=== PATIENT | female | born 1960 | race Caucasian/White ===

== ENCOUNTER → 2023-10-17 11:41 | Outpatient (REF) | payer BC, SELFPAY | LOC: WDC 11:41 | PROVIDERS: ATTENDING PHYSICIAN Obstetrics & Gynecology; FAMILY PHYSICIAN Internal Medicine | DX: Z12.31 Encounter for screening mammogram for malignant neoplasm of breast (principal) | CPT/HCPCS: 77063; 77067 ==

== ENCOUNTER → 2024-01-08 13:35 | Outpatient (REF) | payer BC, SELFPAY | LOC: HWRAD 13:35 | PROVIDERS: ATTENDING PHYSICIAN Nurse Practitioner Family; FAMILY PHYSICIAN Internal Medicine | DX: R93.89 Abnormal findings on diagnostic imaging of other specified body structures (principal); R06.09 Other forms of dyspnea | CPT/HCPCS: 71250 ==

== ENCOUNTER → 2024-04-08 12:45 | Outpatient (REF) | payer BC, SELFPAY | LOC: HWRAD 12:45 | PROVIDERS: ATTENDING PHYSICIAN Internal Medicine Critical Care Medicine; FAMILY PHYSICIAN Internal Medicine | DX: R91.1 Solitary pulmonary nodule (principal) | CPT/HCPCS: 71250 ==

== ENCOUNTER → 2024-07-22 16:13 | Outpatient (REF) | payer BC, SELFPAY | LOC: HWRCS 16:13 | PROVIDERS: ATTENDING PHYSICIAN Internal Medicine | DX: I48.91 Unspecified atrial fibrillation (principal) | CPT/HCPCS: 93306 ==

== ENCOUNTER 2024-07-28 11:19 | Day surgery (SDC) | payer BC, SELFPAY ==
[2024-07-28] VITALS (12 sets, daily range): BP systolic 83–107; BP diastolic 59–86; BMI 22.4
[2024-07-28 12:00] LABS: Hematocrit 45.7 % (37.0-47.0); Hemoglobin 15.6 g/dL (12.0-16.0); Mean Corp Hgb Conc. 34.1 g/dL (33.0-37.0); Mean Corpuscular Hgb 32.7 pg (27.0-31.0); Mean Corpuscular Volume 95.8 fL (81.0-99.0); Mean Platelet Volume 9.4 fL (7.4-10.4); Platelet Count 157 10^3/uL (130-400); Red Blood Cell Count 4.77 10^6/uL (4.20-5.40); Red Cell Dist. Width 12.4 % (11.5-14.5); White Blood Cell Count 5.5 10^3/uL (4.8-10.8)
[2024-07-28] MEDS: LOW STRENGTH ASPIRIN 81 MG PO (12:32)
[2024-07-28 12:43] LABS: ALT (SGPT) 46 U/L (0-35); AST (SGOT) 57 U/L (14-36); Albumin 4.8 g/dl (3.5-5.0); Alkaline Phosphatase 88 U/L (38-126); Blood Urea Nitrogen 18 mg/dl (7-17); Calcium 9.5 mg/dl (8.4-10.2); Carbon Dioxide 31 mmol/L (22-30); Chloride 106 mmol/L (98-107); Estimated Creatinine Clearance 53 ml/min; Glucose 104 mg/dl (70-99); Potassium 5.1 mmol/L (3.5-5.1); Sodium 143 mmol/L (135-145); Total Bilirubin 1.2 mg/dl (0.2-1.3); Total Protein 7.2 g/dl (6.3-8.2); eGFR 55.76
--- NOTE | 2024-07-28 18:20 | ITS.CL.CATH ---
E Commerce Specialist - Catheterization
Cardiac Catheterization
Procedure Report:
LEFT HEART CATHETERIZATION
Date of Procedure: July 28, 2024
Referring: Susan Rodrigez MD
PROCEDURES:
1. Left heart catheterization, coronary angiogram.
2. Moderate sedation.
INDICATION: New Afib with RVR, new cardiomyopathy
ACCESS: Right radial artery, 6Fr. sheath, under US guidance.
HEMODYNAMICS : (mmHg)
AO (s/d) : 75/57
LVEDP : 13
No significant gradient across the aortic valve to suggest aortic stenosis.
CORONARY FINDINGS
Dominance: Right
Left Main Trunk (LMT): Large caliber vessel that gives rise to the LAD and LCx branches that is free of angiographic disease.
Left Anterior Descending Artery (LAD): Large caliber vessel that gives off two major diagonal branches as it courses along the anterior inter-ventricular groove before reaching but not wrapping the apex. The distal LAD is diffusely diseased and a
small caliber vessel, cannot definitively rule out presence possibly of SCAD, though low suspicion given no angina or other symptoms.
Left Circumflex Artery (LCx): Large caliber vessel that gives off a large major obtuse marginal (OM) as it courses along the atrio-ventricular (AV) groove. The LCx has mild luminal irregularities.
Right Coronary Artery (RCA): Large caliber dominant vessel that gives rise to large posterior descending artery (RPDA) that reaches the apex and postero-lateral ventricular (RPLV) branches distally. The RCA has no obstructive disease.
SEDATION: 37 minutes of procedural sedation was utilized. IV Midazolam and IV Fentanyl were administered. An independent medical planner was present to assist with and help manage the patient's level of consciousness and physiologic status.
RADIATION SUMMARY: Fluoro Time (min): 1.5, Dose (mGy): 196.0, DAP (Gy.cm2) : 13.2
Closure Device: There were no immediate intra-procedural complications. The sheath was pulled in the malthouse laborer and a vascular-band applied to the right wrist for radial artery hemostasis using the patent hemostasis technique.
CONCLUSIONS
1. The distal LAD is diffusely diseased and a small caliber vessel, cannot definitively rule out presence possibly of SCAD, though low suspicion given no angina or other symptoms.
2. Overall finding likely most consistent with non-ischemic cardiomyopathy.
RECOMMENDATIONS
1. Wean radial band per protocol. Monitor right hand perfusion and for bleeding from the radial site following removal of the vascular-band following trans-radial access.
2. Continue aggressive medical therapy and risk factor modification for secondary CAD prevention. Given small possibility of distal LAD SCAD, will pursue outpt imaging for FMD for thoroughness though suspicion is very low with no angina or other
symptoms.
3. Hydrate with normal saline to mitigate the risk of contrast-induced acute kidney injury.
4. Follow-up with me as outpatient.
5. Referral for cardiac rehab.
6. DCCV/OZZY in near future for persistent Afib, resume jazmin howard.
Susan Rodrigez
== END 2024-07-28 18:55 | disposition home or self-care (01) ==
LOC: CATH 11:19
PROVIDERS: ATTENDING PHYSICIAN Internal Medicine Interventional Cardiology; FAMILY PHYSICIAN Internal Medicine
DX: I42.9 Cardiomyopathy, unspecified (principal); I48.19 Other persistent atrial fibrillation; Z79.01 Long term (current) use of anticoagulants; R06.09 Other forms of dyspnea; I50.30 Unspecified diastolic (congestive) heart failure; Z85.3 Personal history of malignant neoplasm of breast
CPT/HCPCS: 99152; 99153; 80053; 85027; 93458; C1894; Q9967

== ENCOUNTER → 2024-08-11 12:57 | Outpatient (REF) | payer BC, SELFPAY | LOC: HWRAD 12:57 | PROVIDERS: ATTENDING PHYSICIAN Internal Medicine Interventional Cardiology; FAMILY PHYSICIAN Internal Medicine | DX: I42.8 Other cardiomyopathies (principal); I50.30 Unspecified diastolic (congestive) heart failure | CPT/HCPCS: 93975 ==

== ENCOUNTER 2024-09-04 11:35 | Day surgery (SDC) | payer BC, SELFPAY ==
--- NOTE | 2024-09-05 00:50 | ITS.CL.CARDI ---
Principal Process Engineer - Cardioversion
Cardioversion
Procedure Report:
Date of Procedure: 09/04/24
Procedure: Cardioversion
Indication: Symptomatic atrial fibrillation
Performing Physician: Vangie Gallo DO [facility]
Anticoagulation: Eliquis.
Technique: The patient was brought to the holding area. Signed informed consent was obtained. A time out was called and performed. The patient was anesthetized by the anesthesia service. Anticoagulation status was reviewed and appropriate;Patient
was provided Eliquis 5 mg p.o. prior to cardioversion as she did not take her morning medication.. R2 pads were placed anteriorly and posteriorly. Synchronized biphasic shock were attempted at 200J, 250J, and 360J were unsuccessful. Pads were
repositioned from AP to anterior�lateral and a final synchronized biphasic shock at 360 J was unsuccessful in converting patient out of atrial fibrillation. No immediate procedural complications. Post procedure EKG: Atrial fibrillation with heart
rates [address] abnormality. QT C5 112 ms.
Conclusion: Unsuccessful cardioversion. No immediate postprocedure complications and patient states she is asymptomatic in atrial fibrillation. Patient will continue uninterrupted anticoagulation. Patient was referred to see electrophysiology to
discuss options including ablation. She has an appoint with Dr. Sánchez on September 14, 2024 at 11:20 AM. Study results and plan discussed with patient and her Jacob. All questions were answered
== END 2024-09-04 14:53 | disposition home or self-care (01) ==
LOC: CATH 11:35
PROVIDERS: ATTENDING PHYSICIAN Internal Medicine Cardiovascular Disease; FAMILY PHYSICIAN Internal Medicine; REFERRING PHYSICIAN Internal Medicine Interventional Cardiology
DX: I48.0 Paroxysmal atrial fibrillation (principal); R06.09 Other forms of dyspnea; E78.2 Mixed hyperlipidemia; I50.30 Unspecified diastolic (congestive) heart failure; Z85.3 Personal history of malignant neoplasm of breast; Z87.891 Personal history of nicotine dependence; Z79.82 Long term (current) use of aspirin; Z79.01 Long term (current) use of anticoagulants; Z79.84 Long term (current) use of oral hypoglycemic drugs
CPT/HCPCS: 92960; 93005

== ENCOUNTER → 2024-10-21 10:54 | Outpatient (REF) | payer BC, SELFPAY | LOC: WDC 10:54 | PROVIDERS: ATTENDING PHYSICIAN Obstetrics & Gynecology; FAMILY PHYSICIAN Internal Medicine | DX: Z12.31 Encounter for screening mammogram for malignant neoplasm of breast (principal) | CPT/HCPCS: 77063; 77067 ==

== ENCOUNTER 2024-10-28 06:03 | Day surgery (SDC) | payer BC, SELFPAY ==
[2024-10-07 09:53] VITALS: BMI 23.1
[2024-10-07 10:11] LABS: Hematocrit 45.5 % (37.0-47.0); Hemoglobin 15.2 g/dL (12.0-16.0); Mean Corp Hgb Conc. 33.4 g/dL (33.0-37.0); Mean Corpuscular Volume 97.0 fL (81.0-99.0); Nucleated Red Blood Cells % 0 %; Platelet Count 148 10^3/uL (130-400); Red Cell Dist. Width 12.7 % (11.5-14.5)
[2024-10-07 10:27] LABS: INR 1.08; PT 14.5 Sec (11.4-14.6)
[2024-10-07 10:35] LABS: ALT (SGPT) 39 U/L (0-35); AST (SGOT) 52 U/L (14-36); Albumin 4.9 g/dl (3.5-5.0); Alkaline Phosphatase 96 U/L (38-126); Blood Urea Nitrogen 18 mg/dl (7-17); Calcium 9.7 mg/dl (8.4-10.2); Carbon Dioxide 30 mmol/L (22-30); Chloride 105 mmol/L (98-107); Estimated Creatinine Clearance 51 ml/min; Glucose 97 mg/dl (70-99); Magnesium 2.2 mg/dl (1.6-2.3); Potassium 4.8 mmol/L (3.5-5.1); Sodium 141 mmol/L (135-145); Total Protein 7.4 g/dl (6.3-8.2); eGFR 55.76
--- NOTE | 2024-10-07 10:58 | HPS.HSE ---
Family Physician
-
Family Physician: Bernie Bennett
Chief Complaint
-
Persistent atrial fibrillation.
History of Present Illness
The patient is a 64 year old female presenting today for persistent atrial fibrillation. She does report symptoms of shortness of breath and mild palpitations likely associated with this diagnosis. She was officially diagnosed with this
arrhythmia in November 2023; however, her symptoms began in October 2023. She previously underwent a cardioversion in August. Unfortunately, her atrial fibrillation returned soon after this procedure. She is on current pharmacological therapy with
Metoprolol Succinate. She does report compliance with Eliquis for oral anticoagulation due to a CHADS-VASc of 3. She notes that her current symptoms associated with her arrhythmia greatly interfere with her activities of daily living and overall
impact her quality of life. She is interested in pursuing pulmonary vein isolation for further arrhythmia management. She denies any complaints today such as chest pain, shortness of breath at rest, nausea, vomiting, diarrhea, lightheadedness,
dizziness, cough, sore throat, or fever.
Medical History
Past Medical History
Past Medical History: Reports Other
Additional Past Medical History:
1. Persistent atrial fibrillation, status post cardioversion 08/2024; pharmacological therapy with Metoprolol Succinate and oral anticoagulation with Eliquis.
2. Hyperlipidemia.
3. Coronary artery disease, non-obstructive.
4. Congestive heart failure, reduced ejection fraction.
5. Nonischemic cardiomyopathy, likely tachycardia induced.
6. Mild valvular disease.
7. Pulmonary nodule.
8. Exercise induced asthma.
9. Mild renal insufficiency.
10. Colon polyps.
11. Cervical degenerative disc disease.
12. Osteoarthritis, status post right total knee arthroplasty, 2007, and left total hip arthroplasty 2022.
13. Hypothyroidism.
14. Breast cancer, 2019, status post right lumpectomy, radiation, and previous Anastrozole.
15. Anxiety/depression.
16. Osteopenia.
17. Chronically elevated transaminases.
18. Remote infrequent tobacco abuse.
Past Surgical History: Reports Other
Additional Past Surgical History:
1. Cardioversion.
2. Cardiac catheterization.
3. Left total hip arthroplasty.
4. Right total knee arthroplasty.
5. Right breast lumpectomy.
6. Right breast biopsy.
7. Breast augmentation.
8. Colonoscopy x4.
Social History
Tobacco: Former Smoker (She reports infrequent cigarette smoking in her high school years. )
Alcohol: Other (Rare use reported. )
Personal:
Living: Other (She lives with her in a 2 story home with a basement. )
Family History
Family History: Not pertinent
Allergies / Home Medications
Allergy/Medication List:
Home medications:
1. Eliquis 5 mg p.o. twice a day.
2. Ascorbic acid 500 mg p.o. daily.
3. Aspirin 81 mg p.o. daily.
4. Biotin 10,000 mcg p.o. daily.
5. Calcium 1 tablet p.o. daily.
6. Cholecalciferol 125 mcg p.o. daily.
7. Farxiga 10 mg p.o. daily.
8. Colace 50 mg p.o. daily.
9. Levothyroxine 137 mcg p.o. daily.
10. Metoprolol Succinate 25 mg p.o. daily.
11. Multivitamin 1 tablet p.o. daily.
12. [place] 3 1 capsule p.o. daily.
13. Rosuvastatin 20 mg p.o. at bedtime.
14. Effexor XR 150 mg p.o. daily.
16. Vitamin B complex 1 tablet p.o. daily.
17. Zinc 1 tablet p.o. daily.
Allergies: No known allergies.
Review of Systems
-
A 12 point ROS was completed and negative except as noted: Yes
Physical Exam
Vital Signs
Blood pressure 132/83. Heart rate 53. Respirations 18. Pulse ox 100% on room air.
Height 5 feet, 8 inches. Weight 69 kg. BMI 23.1.
Physical Exam
General: Well Developed, Well Nourished and No Apparent Distress
HEENT: NormoCephalic, Moist mucous membranes, Atraumatic and PERRLA
Respiratory: Clear
Cardiac: Irregular Rhythm
GI: Soft, Non Tender and Non Distended
Musculoskeletal: No Edema and Normal Gait & Station
Skin: Warm and Dry
Neuro: AO x 3 and Nonfocal/grossly intact
Laboratory Results
-
10/07/24 09:59
10/07/24 09:59
Laboratory Results
PT 14.5 Sec (11.4-14.6) 10/07/24 09:59
INR 1.08 10/07/24 09:59
Total Bilirubin 1.3 mg/dl (0.2-1.3) 10/07/24 09:59
AST 52 U/L (14-36) H 10/07/24 09:59
ALT 39 U/L (0-35) H 10/07/24 09:59
Alkaline Phosphatase 96 U/L (38-126) 10/07/24 09:59
Magnesium 2.2.
Type and screen O positive.
EKG 10/07/2024: Atrial fibrillation with rapid ventricular response. Nonspecific ST and T wave abnormality.
Chest CT 10/07/2024: Short segment common vestibule for the left superior and inferior pulmonary veins, fairly commonly seen and considered normal variant. No evidence for left atrial thrombus.
Echocardiogram 07/22/2024: Normal left ventricular size and wall thickness. Mildly reduced left ventricular systolic function. Mild global hypokinesis. LV ejection fraction is 40-45% by Do's method of discs. Stage I diastolic dysfunction
suggestive of abnormal relaxation. Normal right ventricular size and function. Indexed LA volume is mildly abnormal (35-41 mL/m2). Mild mitral regurgitation. Mild tricuspid regurgitation. Estimated pulmonary artery pressure of 20-25 mmHg, assuming a
right atrial pressure of 3 mmHg. No prior study available for comparison.
Impression/Plan
-
IMPRESSION/PLAN:
1. Persistent atrial fibrillation: The patient is in need of pulmonary vein isolation with Dr. Winston Palumbo on 10/28/2024. The benefits and risks of the procedure have been explained to the patient. The patient understands these risks and wishes to
proceed. She will not be required to undergo a pre-procedural transesophageal echocardiogram as she has been compliant with her home oral anticoagulation. She is aware to continue Eliquis uninterrupted prior to her ablation. She will hold her
Farxiga 3 days prior. She will take no medications the morning of her ablation.
[2024-10-28] VITALS (16 sets, daily range): BP systolic 84–121; BP diastolic 66–97
[2024-10-28 08:45] LABS: ACT-LR - POC 353 Seconds (116-155)
[2024-10-28 09:04] LABS: ACT-LR - POC 340 Seconds (116-155)
[2024-10-28 09:30] LABS: ACT-LR - POC 377 Seconds (116-155)
[2024-10-28 09:46] LABS: ACT-LR - POC 311 Seconds (116-155)
[2024-10-28 09:50] LABS: ACT-LR - POC 165 Seconds (116-155)
--- NOTE | 2024-10-28 10:34 | ITS.CL.ABL ---
Chest Pain Coordinator - Ablation
Ablation
Procedure Report:
Primary Type Copy Examiner: Dr Susan Rodrigez
Procedure Date: 10/28/2024
Patient History:
Patient is a pleasant 64-year-old female with a past medical history significant for heart failure with mildly reduced ejection fraction, mixed lipidemia, exercise-induced asthma, hypothyroidism, former tobacco use, symptomatic persistent atrial
fibrillation.
See H&P for complete details.
Indication:
Heart failure with mildly reduced ejection fraction
Nonischemic cardiomyopathy
Symptomatic persistent atrial fibrillation
Arrhythmia Specific History:
Prior Medical Therapies for Rate and Rhythm Control:
X Beta-magalie
[ ] Calcium channel-magalie
[ ] Amiodarone
[ ] Dronederone
[ ] Sotalol
[ ] Flecainide
[ ] Dofetilide
[ ] Options limited by bradycardia
[ ] Options limited by comorbid renal disease
Prior Procedural Therapies for AF/AFL:
X Cardioversion
[ ] Pulmonary Vein Isolation
[ ] Posterior Wall Isolation
[ ] Additional lines (Specify)
[ ] Surgical Ortiz-MAZE or PVI (Specify)
Procedure Performed:
X AF ablation procedure (60122) -- includes LA/CS pacing, trans-septal, 3D mapping, + ICE
[ ] +IV drug (29322)
[ ] +Other Arrhythmia (54536)
X +Other AF Line/ablation (08482) x2 - Floor line, roof line, posterior wall isolation
Risks and expected recovery has been explained in detail. Alternative options have been explored, and in a shared-decision making fashion we have decided that this was the most appropriate procedure.
Method
NPO status confirmed. Grounding pad applied. Defibrillator pads applied. Continuous surface ECG, pulse oximetry, and blood pressure were monitored. Procedure was performed under general anesthesia, with anesthesia services.
Both groins were clipped, prepped with Chloraprep, and draped in sterile fashion. Time out was called. Local anesthesia administered with bupivacaine. The right femoral vein was accessed for catheter placement, using ultrasound guidance (images
saved to record), micro-puncture needle/wire, and modified seldinger technique. 3 sheaths were placed. The following catheters were used:
[ ] Tacticath SE (D/F Curve) ablation catheter
X Viewflex 9Fr ICE catheter
X Inquiry decapolar 6Fr diagnostic catheter
[ ] CRD Hex 6Fr
X FlexCath Contour 10 Fr with PulseSelect PFA Catheter
X Advisor HD Grid Mapping Catheter, SE
[ ] Acuson AcuNav 8 Fr ICE catheter
[ ]Other: [ ]
Intracardiac ultrasound (ICE) was carefully advanced into the right atrium to guide sheath placement over a J-wire, catheter placement, guide trans-septal puncture, identify potential complications, identify anatomic structures and ensure proper
contact between ablation catheter and tissue.
Heparin was given prior to trans-septal puncture. Heparin was given to achieve and maintain a target ACT of 300-400 seconds throughout the procedure.
Trans-septal access was performed under ICE guidance. The trans-septal puncture was performed with a SafeSept wire through a Brockenbrough needle assembly through the steerable sheath. The wire was visualized as it entered the LSPV and system
advanced under ICE guidance and fluoroscopy into the LA. The Brockenbrough needle assembly, SafeSept wire and sheath dilator were removed under negative pressure. LA pressure was measured and recorded.
ICE and 3D mapping was performed to identify relevant cardiac structures. A careful 3D map was created to assess for regions of low-voltage and abnormal electrogram signals using HD grid mapping catheter and PulseSelect catheter. Additional mapping
was performed as outlined below.
Prior to ablation, glycopyrrolate was provided. PulseSelect catheter was advanced over J-wire to the ostium of each vein. Pulmonary vein isolation was performed with ostial and antral lesions in a circumferential manner. Contact was visualized via
EAM, ICE, fluoroscopy, and EGM signals.
After accomplishing pulmonary venous isolation, mapping identified additional areas likely to be extra PV contributors to atrial fibrillation. These areas demonstrated patchy low voltage as well as complex fractionated electrograms. These areas can
be sites for the formation of rotors which can drive and maintain atrial fibrillation. These areas are known to be significant contributors to initiation and perpetuation of atrial fibrillation.
Additional energy applications/additional ablation sets targeted extra PV contributors to atrial fibrillation.
Targets for additional PFA ablation included: LA posterior wall targeted with pulsed electric field energy isolating the posterior wall of the left atrium. Posterior wall isolation was performed by anchoring the J-wire within the pulmonary vein and
placing the PulseSelect catheter in contact posterior wall as visualized by aforementioned methods.
After ablation of the posterior wall, targets remained including:
- Inferior LA floor
- Anterior LA roof
These areas were ablated using pulsed electric field energy eliminating the extra PV contributors to atrial fibrillation.
During ablation of the right inferior pulmonary veins, patient had spontaneous return of sinus rhythm which maintained for the remainder of procedure. Following completion of ablation lesions, a post-ablation voltage/activation map was performed in
sinus rhythm. Entrance and exit block were confirmed for each vein and the posterior wall.
Catheter and sheath were removed from the left atrium and post-ablation intracardiac echo evaluation was consistent with pre-ablation with no changes and no pericardial effusion and there is no left atrial thrombus or left ventricle thrombus seen.
Electrophysiology study was performed. Hemostasis was obtained with figure of 8 stitch for each groin and with manual pressure. Protamine was used for reversal.
Estimated Blood Loss
5 mL
Complications
None
Fluoroscopy: 1.0 minutes; 2.6 mGy; DAP 0.3
LA Pressure: Pre 10 mmHg, post 15 mmHg
Baseline Intervals:
Rhythm: AF
QRS: 76 ms
Post-Procedure Intervals:
NV: 173 ms
QRS: 81 ms
QT: 483 ms
AVWB: 400 ms
AERP: 600/270 ms
Recommendations
- Bedrest with straight-leg precautions as ordered
- Anticipate same day discharge if patient meeting clinical metrics
- Resume home medications as indicated
- Ok to resume anticoagulation tonight if patient and groin sites stable
- Plan for follow-up in office as scheduled
Winston Palumbo DO, FACC, [facility]
Clinical Cardiac B Operator
cc: Dr Susan Rodrigez; Dr Bernie Bennett
[2024-10-28] MEDS: ANESTHETIC LOZENGE 1 LOZENGE PO (14:44)
--- NOTE | 2024-10-28 16:10 | W.PN.UPDATE ---
Update Note
Progress Note Update
64 yo WF s/p PVI (same day). She denies cp, sob, debbi diet, voiding, R fem site had bleed initially when first oob, manual pressure held and no further bleeding, EKG SR. She will resume Eliquis tonight and stop ASA. Activity restrictions reviewed.
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 She is for d/c home after 230p.
== END 2024-10-28 15:37 | disposition home or self-care (01) ==
LOC: CATH 06:03
PROVIDERS: ATTENDING PHYSICIAN Internal Medicine Cardiovascular Disease; FAMILY PHYSICIAN Internal Medicine; OTHER PHYSICIAN Internal Medicine Interventional Cardiology
DX: I48.19 Other persistent atrial fibrillation (principal); I25.10 Atherosclerotic heart disease of native coronary artery without angina pectoris; I50.22 Chronic systolic (congestive) heart failure; E03.9 Hypothyroidism, unspecified; E78.2 Mixed hyperlipidemia; F32.A Depression, unspecified; F41.9 Anxiety disorder, unspecified; I42.8 Other cardiomyopathies; J45.990 Exercise induced bronchospasm; M19.90 Unspecified osteoarthritis, unspecified site; M85.80 Other specified disorders of bone density and structure, unspecified site; M50.30 Other cervical disc degeneration, unspecified cervical region; Z87.891 Personal history of nicotine dependence; R74.01 Elevation of levels of liver transaminase levels; Z85.3 Personal history of malignant neoplasm of breast; Z96.643 Presence of artificial hip joint, bilateral; Z79.01 Long term (current) use of anticoagulants; Z79.82 Long term (current) use of aspirin; Z79.84 Long term (current) use of oral hypoglycemic drugs; Z79.890 Hormone replacement therapy; Z79.899 Other long term (current) drug therapy; Z86.0100 Personal history of colon polyps, unspecified; Z91.048 Other nonmedicinal substance allergy status; Z96.651 Presence of right artificial knee joint
CPT/HCPCS: C1733; C1766; C1732; C1894; C1730; C1769; 36415; 75572; 80053; 83735; 85025; 85347; 85610; 86850; 86900; 86901; 93005; 93656; 93657; Q9967